=== PATIENT | male | born 2005 | race Hispanic/Latino ===

== ENCOUNTER 2025-06-15 10:10 | Emergency (ER) | payer OTHER, SELFPAY ==
[2025-06-15] MEDS ORDERED: Lidocaine 1%/Epinephrine 1:100K 10 ML VIAL ONE (11:22)
== END 2025-06-15 11:45 | disposition home or self-care (01) ==
LOC: BURERS 10:10
DX: S01.01XA Laceration without foreign body of scalp, initial encounter (principal); W22.8XXA Striking against or struck by other objects, initial encounter
CPT/HCPCS: 12013; 70450

== ENCOUNTER 2025-06-22 12:50 | Emergency (ER) | payer SELFPAY | END 2025-06-22 13:01 | disposition home or self-care (01) | LOC: BURERS 12:50 | DX: S01.01XD Laceration without foreign body of scalp, subsequent encounter (principal) ==